=== PATIENT | male | born 1975 | race African-American/Black ===

== ENCOUNTER 2017-01-11 08:38 | Day surgery (SDC) | payer OTHER ==
[2017-01-11] MEDS ORDERED: ONDANSETRON HCL INJ/PF 4 MG/2 ML SDV ONE (08:52)
[2017-01-11] MEDS ORDERED: NALOXONE HCL INJ/PF 0.4 MG/1 ML SDV ONE (08:52)
[2017-01-11] MEDS ORDERED: FLUMAZENIL INJ 0.5 MG/5 ML VIAL IV ONE (08:53)
[2017-01-11] MEDS ORDERED: GLUCAGON,HUMAN RECOMB 1 MG INJ ONE (08:53)
[2017-01-11] MEDS ORDERED: FENTANYL CITRATE INJ/PF 100 MCG/2 ML AMPUL ONE ×2 (08:53)
[2017-01-11] MEDS ORDERED: EPINEPHRINE INJ 1 MG/10 ML DISP.SYRIN ONE (08:53)
[2017-01-11 09:18] LABS: HEMATOCRIT 46.4 % (37.9-51.0); HEMOGLOBIN 15.3 g/dL (13.5-17.0); HGB HCT DIFFERENCE -0.5; MEAN CORPUSCULAR HEMOGLOBIN 29.7 pg (27.0-33.4); MEAN CORPUSCULAR HGB CONC 33.1 g/dL (32.0-36.0); MEAN CORPUSCULAR VOLUME 90 fl (80-97); RED BLOOD COUNT 5.16 10^6/uL (4.35-5.55); RED CELL DISTRIBUTION WIDTH 15.7 % (11.5-14.0); WHITE BLOOD COUNT 7.9 10^3/uL (4.0-10.5)
[2017-01-11 09:41] LABS: ANION GAP 10 (5-19); BLOOD UREA NITROGEN 12 mg/dL (7-20); CALCIUM 9.7 mg/dL (8.4-10.2); CARBON DIOXIDE 28 mmol/L (22-30); CHLORIDE 105 mmol/L (98-107); CREATININE RESULT 1.43 mg/dL (0.52-1.25); GLUCOSE 93 mg/dL (75-110); POTASSIUM 4.2 mmol/L (3.6-5.0); SODIUM 142.5 mmol/L (137-145)
[2017-01-11] MEDS: MIDAZOLAM 2 MG/2 ML INJ ONE ×3 (10:42→10:58)
--- NOTE | 2017-01-11 11:32 | Operative Report ---
Operative Report DATE OF SURGERY: 01/11/17 PREOPERATIVE DIAGNOSIS: Blood per rectum POSTOPERATIVE DIAGNOSIS: Possible Hess's esophagus, ileal J-pouch multiple polyps OPERATION: Esophagogastroduodenoscopy with esophageal biopsy. Lower endoscopy with snare polypectomy of ileal J-pouch polyp. SURGEON: KHUSHI BARBOZA ANESTHESIA: Moderate Sedation TISSUE REMOVED OR ALTERED: This esophageal biopsy. Ileal J-pouch polyp. COMPLICATIONS: None ESTIMATED BLOOD LOSS: minimal INTRAOPERATIVE FINDINGS: Granger-colored mucosal changes to the distal esophagus about 1 cm segment. Multiple too numerous to count polyps ranging from 2 to quarter centimeter in size in the ileal J-pouch just above the anus with these polyps becoming much smaller and infrequent further proximally. PROCEDURE: Informed consent was obtained. Patient was brought to the endoscopy suite. IV sedation with Versed and fentanyl was administered. Endoscope was passed via the patient's mouth into the second portion the duodenum. Duodenum appeared to be normal. The stomach mucosa appeared to be normal. At the distal esophagus there was about a 1 cm segment of circumferential Granger-colored mucosa. Four- quadrant esophageal biopsies were performed. Remainder of the esophagus appeared normal. Patient was repositioned. Digital rectal exam revealed the no palpable perianal masses. I could not feel the anastomosis due to the patient's body habitus. Endoscope was passed via the patient's anus it was fed into what appeared to be the ileal J-loop. There were multiple too numerous to count polyps of different sizes ranging from 2 cm to a quarter centimeter in size at the distal aspect just above the anal canal. The size and the frequency of these polyps markedly diminished as I went proximally of the ileal J-pouch. I could not the advanced the scope beyond the approximately a foot due to the curve of the ileum. One of these polyps in the distal region was snare polypectomied and the specimen retrieved. Patient tolerated procedure well with no apparent complications and was taken to the recovery area in stable condition. Assessment: Rule out Hess's esophagus. Will await biopsy results. Patient with multiple polyps in what appeared to be is J-pouch, possibly his distal rectum if any rectum was left behind during his the prior surgery. Will await biopsy results. These multiple polyps are likely the cause of his intermittent blood per rectum.
--- NOTE | 2017-01-11 11:35 | PDOC DISCHARGE SUMMARY ---
Discharge Summary (SDC) - Discharge Final Diagnosis: Ileal J-pouch polyposis Date of Surgery: 01/11/17 Discharge Date: 01/11/17 Condition: Good Treatment or Instructions: Upper and lower endoscopy with snare polypectomy. May discharge home when met discharge criteria. Follow-up with me next week. Discharge Diet: As Tolerated Discharge Activity: Activity As Tolerated Report the Following to Your Physician Immediately: Increase in Pain, Unusual Bleeding - Normal to have small amounts of bleeding.
[2017-01-11 12:11] VITALS: BP 140/97
== END 2017-01-11 12:15 | disposition home or self-care (01) ==
LOC: END 08:38
PROVIDERS: ATTEND Surgery
PROC: 0DBE8ZX Excision of Large Intestine, Via Natural or Artificial Opening Endoscopic, Diagnostic (ICD-10-PCS; principal; 2017-01-11 08:00)
PROC: 0DB48ZX Excision of Esophagogastric Junction, Via Natural or Artificial Opening Endoscopic, Diagnostic (ICD-10-PCS; 2017-01-11 08:00)
DX: K63.5 Polyp of colon (principal); K62.5 Hemorrhage of anus and rectum; K22.8 Other specified diseases of esophagus; Z85.038 Personal history of other malignant neoplasm of large intestine; F17.210 Nicotine dependence, cigarettes, uncomplicated
CPT/HCPCS: 43239; 45385; 36415; 85027; 80048; 88305 ×2; J2250; J3010; J0171; J1610; J2310; J2405; J3490